=== PATIENT | female | born 1965 | race African-American/Black ===

== ENCOUNTER 2016-06-01 08:45 | Outpatient (RCR) | payer BC | END 2016-06-08 | disposition home or self-care (01) | LOC: EDBD → PTY 08:45 | DX: M72.2 Plantar fascial fibromatosis (principal); M67.00 Short Achilles tendon (acquired), unspecified ankle | CPT/HCPCS: 97110; 97140; 97161; G0283 ==

== ENCOUNTER 2016-06-29 09:00 | Outpatient (RCR) | payer BC | END 2016-07-08 | disposition home or self-care (01) | LOC: PTY 09:00 | DX: M72.2 Plantar fascial fibromatosis (principal); M76.61 Achilles tendinitis, right leg | CPT/HCPCS: 97110; 97140; G0283 ==

== ENCOUNTER 2016-07-13 09:00 | Outpatient (RCR) | payer BC | END 2016-08-08 | disposition home or self-care (01) | LOC: PTY 09:00 | DX: M72.2 Plantar fascial fibromatosis (principal); M76.61 Achilles tendinitis, right leg | CPT/HCPCS: 97110; 97140; G0283 ==

== ENCOUNTER 2016-08-24 08:54 | Outpatient (RCR) | payer BC | END 2016-09-07 | disposition home or self-care (01) | LOC: PTY 08:54 | DX: M72.2 Plantar fascial fibromatosis (principal); M67.00 Short Achilles tendon (acquired), unspecified ankle | CPT/HCPCS: 97110; 97140; G0283 ==

== ENCOUNTER 2016-09-14 08:54 | Outpatient (RCR) | payer BC | END 2016-10-08 | disposition home or self-care (01) | LOC: PTY 08:54 | DX: M72.2 Plantar fascial fibromatosis (principal); M76.61 Achilles tendinitis, right leg | CPT/HCPCS: 97110; 97140; G0283 ==

== ENCOUNTER 2017-04-03 09:00 | Outpatient (RCR) | payer BC | END 2017-04-10 | disposition home or self-care (01) | LOC: PTY 09:00 | DX: M72.2 Plantar fascial fibromatosis (principal); M67.01 Short Achilles tendon (acquired), right ankle ==